=== PATIENT | female | born 1975 | race Caucasian/White ===

== ENCOUNTER → 2016-07-11 | Outpatient (CLI) | payer MEDICAID ==
[~2016-07-11] MED LIST: AMOXICILLIN 50500 MG PO; AURALGAN O10 ML/BOTT OT; DICLOFENAC 50MG50 MG PO; NOMEDS
[2016-07-11 16:02] LABS: AMPHETAMINES/METAMPHETAMINES NEGATIVE ng/mL (<1000)
[2016-07-23 12:37] LABS: Alprazolam Negative (Cutoff=100); Benzodiazepines Negative ng/mL (Cutoff=100); Clonazepam Negative (Cutoff=100); Flurazepam Negative (Cutoff=100); Lorazepam Negative (Cutoff=100); Midazolam Negative (Cutoff=100); Temazepam Negative (Cutoff=100); Triazolam Negative (Cutoff=100)
== END ==
LOC: LAB 15:36
PROVIDERS: Nurse Practitioner Family
DX: F41.9 Anxiety disorder, unspecified (principal); Z79.899 Other long term (current) drug therapy
CPT/HCPCS: G0480

== ENCOUNTER → 2017-03-11 | Outpatient (CLI) | payer MEDICAID ==
[~2017-03-11] MED LIST changes: +PROZAC20 MG; +Xanax0.25 MG
[2017-03-11 12:16] LABS: AMPHETAMINES/METAMPHETAMINES NEGATIVE ng/mL (<1000)
== END ==
LOC: LAB 11:10
PROVIDERS: Nurse Practitioner Family
DX: Z79.899 Other long term (current) drug therapy (principal)

== ENCOUNTER 2017-04-03 15:50 | Emergency (ER) | payer MEDICAID ==
[~2017-04-03] VITALS: Ht 157.5 cm; Wt 79.4 kg
--- NOTE | 2017-04-03 16:33 | RADIOLOGY REPORT PS360 ---
CT HEAD W/O CONTRAST HISTORY: Severe headache MIGRAINES ORDERING PHYSICIAN: Feliz Holman MD PATIENT AGE: 41 years COMPARISON: None TECHNIQUE: Axial images obtained without contrast. Brain and bone windows reviewed. FINDINGS: No midline shift, mass effect, intracranial hemorrhage, hydrocephalus, or extra-axial fluid collection is evident. The calvarium has an unremarkable appearance. No mastoid effusion. The visualized paranasal sinuses are unremarkable. IMPRESSION: Negative CT head without contrast. No acute finding.
--- NOTE | 2017-04-03 16:42 | Emergency Room Report ---
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 N Clinical Suspician of Infection? N Mental Status: 1 - Regular (Normal Baseline) Sepsis Risk: Have you (or family members/close friends) recently traveled outside the [place]? N If Yes, where/when: Have you had exposure to infectious disease within the past month? TB? Other? Specify: Patient states she has a migraine headache for the past 3 weeks was seen in fast track and was sent over for further evaluation and a CAT scan of the head. Planes of throbbing achy migraine headaches with photophobia. States it lasted longer than normal she denies any neurologic complaints otherwise to me no fevers or chills no complaint of neck stiffness. ALLERGIES Coded Allergies: sulfamethoxazole (04/03/17) trimethoprim (04/03/17) Home Medications Reported Medications Alprazolam (Xanax) Fluoxetine Hcl (Prozac) History Medical History General Angina: No [place]: No Hypertension? No Hyperlipidemia? No CHF? No COPD? No Asthma? Yes Hernia? No CVA? No Seizures? No Diabetes? No UTI? Yes Stones? No GB Disease: No Hepatitis? No Arthritis? Yes Migraines? Yes Cataracts? No Glaucoma? No MRSA? No TB? No Anxiety? Yes Depression? Yes Cancer? No Immunization Hx Ped.Immunizations UTD Yes DT/Tetanus > 10 Years Ago Flu NEVER Pneumonia NEVER Surgical Hx Previous Surgery?Y BLADDER TACK HYSTERECTOMY APPEALS NURSE Hx LMP N/A Family History Family Hx Diabetes No CAD Yes Hypertension Yes Hyperlipidemia No Cancer No TB No Social History Smoking Hx Smoker: Current Every Day Smoker Tobacco: Yes Type Cigarettes Packs/day < 1 Pack Alcohol Alcohol: No Review of Systems All Other Systems Reviewed and Negative Physical Exam Vital Signs Vital Signs Date Time Temp Pulse Resp B/P Pulse O2 O2 Flow FiO2 Ox Delivery Rate 04/03 1657 18 04/03 1604 98.3 68 18 148/84 99 General Appearance: Nontoxic Head: Normocephalic, without obvious abnormality, atraumatic. Eyes: conjunctiva/corneas clear ENT: Mucous membranes moist. Neck: No jugular venous distention. Cardiac: regular rate and rhythm Lungs: Clear to auscultation bilaterally Abdomen: Nontender, Nondistended, positive bowel sounds, no rebound : No CVA tenderness Extremities: no edema Musculoskeletal: No chest wall tenderness Skin: No rashes or lesions to exposed skin. Neurologic: Alert. Alert and oriented x3 Cranial nerves intact Strength 5 out of 5 Sensation intact to light touch Psychiatric: Normal affect (Feliz Holman MD) General Appearance normal appearance Respiratory Status No: respiratory distress. Cardiovascular normal exam Neurologic alert Medical Decision Making LABS/Meds/Orders Pt receiving controlled substance in ED? No Comment CT head read as negative by radiology Results/Orders Current Medication Orders Sig/Daisy Start time Last Medication Dose Route Stop Time Status Admin Ketorolac 0 .STK-MED ONE 04/03 1655 DC Tromethamine .ROUTE Ketorolac 30 MG ONCE ONE 04/03 1645 DC 04/03 Tromethamine IM 04/03 1646 1657 Orders Procedure Date/time Status DIET-NOTHING BY MOUTH 04/[address] HEAD REQ 04/03 1611 Complete Departure Departure Time of Disposition 1716 Disposition DC Home or Self Care(routine) Clinical Impression Primary Impression: Migraine Qualifiers: Migraine type: unspecified Status migrainosus presence: without status migrainosus Intractability: not intractable Qualified Code: G43.909 - Migraine, unspecified, not intractable, without status migrainosus Condition STABLE Referrals Melchor Mays APRN (Family) Patient Instructions Migraine -- Adult Additional Instructions follow up with your primary MD. Discharge Counseling Counseled pt/family regarding diagnosis, test results, medications/RX, home care, follow up needs ED Critical Care Critical Care No at 1715
[2017-04-03 17:17] VITALS: BP 134/82
== END 2017-04-03 17:18 | disposition home or self-care (01) ==
LOC: ER 15:50
DX: G43.909 Migraine, unspecified, not intractable, without status migrainosus (principal); J45.909 Unspecified asthma, uncomplicated; Z72.0 Tobacco use; F41.8 Other specified anxiety disorders; Z88.2 Allergy status to sulfonamides; Z88.3 Allergy status to other anti-infective agents

== ENCOUNTER 2017-06-01 17:40 | Emergency (ER) | payer MEDICAID ==
[~2017-06-01] VITALS: Ht 157.5 cm; Wt 70.3 kg
--- OUTSIDE RECORDS SUMMARY | 2017-06-01 18:04 | External Medical Summary Rpt | CCD ---
Author Author [employer] Organization [employer] Address Unknown Phone Unavailable Purpose Continuity of Care Document - through 2016
--- OUTSIDE RECORDS SUMMARY | 2017-06-01 18:04 | External Medical Summary Rpt ---
Author Author [employer], [employer] Organization [employer] Address Unknown Phone Unavailable Results Drugs identified in Urine by Screen method Observa Value Referen Units Interpr Notes Date tion ce etation Range Positive urine drug screen samples are stored for 7 days. Contact the Lab if confirmation of positives is needed. Ampheta NEGATIV <1000 ng/mL No No Sep 6 mine E informa informa 2017 [Presen tion in tion in 10:15 ce] in source source AM Urine data data by Screen method Barbitura <200 ng/mL No No Sep 6 nikkie informati informati 2017 [Mass/vol on in on in 10:15 AM ume] in source source Urine by data data Screen method Benzodiaz 200 ng/mL ng/mL High This is Sep 6 epines an 2017 [Mass/vol UNCONFIRM 10:15 AM ume] in ED Serum or result. Plasma by This Screen result is method for medicalpu rposes and/or treatment only. Cocaine <300 ng/g No No Sep 6 [Mass/vol informati informati 2017 ume] in on in on in 10:15 AM Unspecifi source source ed data data specimen Methadone <300 ng/mL No No Sep 6 informati informati 2017 [Mass/vol on in on in 10:15 AM ume] in source source Unspecifi data data ed specimen Opiates <300 ng/mL No No Sep 6 [Mass/vol informati informati 2017 ume] in on in on in 10:15 AM Unspecifi source source ed data data specimen Phencycli <25 ng/mL No No Sep 6 dine informati informati 2017 [Mass/vol on in on in 10:15 AM ume] in source source Unspecifi data data ed specimen 11-Hydr NEGATIV <50 ng/mL No No Sep 6 oxy E informa informa 2017 delta-9 tion in tion in 10:15 source source AM tetrahy data data drocann abinol [Presen ce] in Unspeci fied specime n Benzodiazepines Confirm, Urine Observa Value Referen Units Interpr Notes Date tion ce etation Range Benzodi Negativ Cutoff= ng/mL No No Dec 12 azepine e 100 informa informa 2017 s tion in tion in 9:36 AM [Presen source source ce] in data data Urine Alprazo Negativ Cutoff= No No No Dec 12 jama e 100 informa informa informa 2017 [Presen tion in tion in tion in 9:36 AM ce] in source source source Urine data data data Clonaze Negativ Cutoff= No No No Dec 12 ariel e 100 informa informa informa 2017 [Presen tion in tion in tion in 9:36 AM ce] in source source source Urine data data data Temazep Negativ Cutoff= No No No Dec 12 am e 100 informa informa informa 2017 [Presen tion in tion in tion in 9:36 AM ce] in source source source Urine data data data by Confirm method Triazol Negativ Cutoff= No No No Dec 12 am e 100 informa informa informa 2017 [Presen tion in tion in tion in 9:36 AM ce] in source source source Urine data data data Midazol Negativ Cutoff= No No No Dec 12 am e 100 informa informa informa 2017 [Presen tion in tion in tion in 9:36 AM ce] in source source source Urine data data data by Confirm method Nordiaz Negativ Cutoff= No No No Dec 12 epam e 100 informa informa informa 2016 [Presen tion in tion in tion in 9:36 AM ce] in source source source Urine data data data Please Comment . No No Drug-te Dec 12 Note: informa informa st 2017 tion in tion in results 9:36 AM source source should data data be interpr eted in the context of clinica linform ation. Patient metabol ic variabl es, specifi c drug manager chemistry ry, andspec imen charact eristic s can affect test outcome . Technic alconsu ltation is availab le if a test result is inconsi stent with anexpec antelmo outcome . (email- carlos manuel milner [email or web address] or call [email or web address] [phone] )Drug brands, if listed herein, are tradema rks of their respect ricfilipenoman Garcia ormed at: - [facility] [id number] [place], [place] [id number]Lab Directo r: Jese Hill MD, Phone: [phone] Oxazepa Negativ Cutoff= No No No Dec 12 m e 100 informa informa informa 2017 [Presen tion in tion in tion in 9:36 AM ce] in source source source Urine data data data Fluraze Negativ Cutoff= No No No Dec 12 ariel e 100 informa informa informa 2017 [Presen tion in tion in tion in 9:36 AM ce] in source source source Urine data data data Lorazep Negativ Cutoff= No No No Dec 12 am e 100 informa informa informa 2017 [Presen tion in tion in tion in 9:36 AM ce] in source source source Urine data data data Drugs identified in Urine by Screen method Observa Value Referen Units Interpr Notes Date tion ce etation Range Positive urine drug screen samples are stored for 7 days. Contact the Lab if confirmation of positives is needed. Ampheta NEGATIV <1000 ng/mL No No Dec 12 mine E informa informa 2016 [Presen tion in tion in 9:36 AM ce] in source source Urine data data by Screen method Barbitura <200 ng/mL No No Dec 12 nikkie informati informati 2017 9:36 [Mass/vol on in on in AM ume] in source source Urine by data data Screen method Benzodiaz 200 ng/mL ng/mL No No Dec 12 epines informati informati 2017 9:36 [Mass/vol on in on in AM ume] in source source Serum or data data Plasma by Screen method Cocaine <300 ng/g No No Dec 12 [Mass/vol informati informati 2017 9:36 ume] in on in on in AM Unspecifi source source ed data data specimen Methadone <300 ng/mL No No Dec 12 informati informati 2017 9:36 [Mass/vol on in on in AM ume] in source source Unspecifi data data ed specimen Opiates <300 ng/mL No No [place] 9 [Mass/vol informati informati 2017 9:36 ume] in on in on in AM Unspecifi source source ed data data specimen Phencycli <25 ng/mL No No Dec 9 dine informati informati 2017 9:36 [Mass/vol on in on in AM ume] in source source Unspecifi data data ed specimen 11-Hydr NEGATIV <50 ng/mL No No Dec 12 oxy E informa informa 2017 delta-9 tion in tion in 9:36 AM source source tetrahy data data drocann abinol [Presen ce] in Unspeci fied specime n
--- OUTSIDE RECORDS SUMMARY | 2017-06-01 18:04 | External Medical Summary Rpt ---
Author Author [employer], [employer] Organization [employer] Address Unknown Phone Unavailable [...] metabol ic variabl es, specifi c drug adjunct instructor chemistry ry, andspec imen charact eristic s can affect test outcome . Technic alconsu ltation is availab le if a test result is inconsi stent with anexpec antelmo outcome . (email- carlos manuel milner [email or web address] or call [employer] [phone] )Drug brands, if listed herein, are tradema rks of their respect ricfilipenoman Garcia ormed at: - [facility] [id number] [place], [place] [id number] Directo r: Jese Hill MD, Phone: [phone] Oxazepa Negativ Cutoff= No No No Dec [...]
--- OUTSIDE RECORDS SUMMARY | 2017-06-01 18:04 | External Medical Summary Rpt | CCD ---
Demographics Preferred Language Singaporean Marital Status Unknown Mormonism Affiliation Unknown Race Unknown Ethnic Group Unknown Author Author , [employer] Address Unknown Phone Immunization No patient found.
--- OUTSIDE RECORDS SUMMARY | 2017-06-01 18:04 | External Medical Summary Rpt | CCD ---
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 S S70.00XA CONTUSION OF UNSPECIFIED HIP, INITIAL ENCOUNTER Results Labs Lab Lab Date Result Refere Interp Status Commen Order Detail nces retati t Range on Drugs identified in Urine by Screen method (03-11-2017 10:15) Ampheta NEGATIV <1000 complet mine 017 E ed [Presen 10:15 ce] in Urine by Screen method Hydr NEGATIV <50 complet oxy 017 E ed delta-9 10:15 tetrahy drocann abinol [Presen ce] in Unspeci fied specime n Drugs identified in Urine by Screen method (12-12-2016 09:36) Ampheta NEGATIV <1000 complet mine 017 E ed [Presen 09:36 ce] in Urine by Screen method Hydr NEGATIV <50 complet oxy 017 E ed delta-9 09:36 tetrahy drocann abinol [Presen ce] in Unspeci fied specime n
--- OUTSIDE RECORDS SUMMARY | 2017-06-01 18:04 | External Medical Summary Rpt | CCD ---
Author Author , [employer] Address Unknown Phone [email or web address] Purpose Continuity of Care Document - 12-12-2016 [...]
--- OUTSIDE RECORDS SUMMARY | 2017-06-01 18:04 | External Medical Summary Rpt | CCD ---
Demographics Preferred Language Chadian Marital Status Unknown Yarsanism Affiliation Unknown Race Unknown Ethnic Group Unknown Author Author , [employer] Address Unknown Phone Immunization No patient found.
[2017-06-01 18:24] LABS: URINE BILIRUBIN - DIPSTICK NEGATIVE (NEG); URINE BLOOD NEGATIVE (NEG)
--- NOTE | 2017-06-01 18:29 | Urgent Treatment Center Report ---
See Addendum History of Present Issue Date/Time Seen by Provider 06/01/171816 Visit Reason Pt arrived:Walked Presenting Problem:PT C/O BODY ACHES, FEVER, CHILLS, DIARRHEA, NAUSEA ADVISES THIS STARTED AT 5AM. PT TOOK IBUPROFEN AT 1600 Location if Accident: Onset of symptoms date/time:/ or onset unknown for:MEDICAL HX UNKNOWN Have you (or family members/close friends) recently traveled outside the [place]? N If Yes, where/when: Have you had exposure to infectious disease within the past month? TB? Other? Specify: Patient state that she woke up about 5am this morning with abdominal pain and cramping State that she has had several eppisodes of diarrhea and vomited x 1 State that she is not sure if she may have a stomach virus or the flu State that she has been achy all over with flu like symptoms States that as the day went on she continued to feel worse so she decided to come in and get checked out ALLERGIES Coded Allergies: sulfamethoxazole (04/03/17) trimethoprim (04/03/17) Home Medications Reported Medications Alprazolam (Xanax) Fluoxetine Hcl (Prozac) History Medical History General Angina: No [place]: No Hypertension? No Hyperlipidemia? No CHF? No COPD? No Asthma? Yes Hernia? No CVA? No Seizures? No Diabetes? No UTI? Yes Stones? No GB Disease: No Hepatitis? No Arthritis? Yes Migraines? Yes Cataracts? No Glaucoma? No MRSA? No TB? No Anxiety? Yes Depression? Yes Cancer? No Immunization HX DT/Tetanus > 10 Years Ago Flu NEVER Pneumonia NEVER Surgical Hx Previous Surgery?Y BLADDER TACK HYSTERECTOMY Family History Family HX Diabetes No CAD Yes Hypertension Yes Hyperlipidemia No Cancer No TB No Social History Smoking Hx Smoker: Current Every Day Smoker Tobacco: Yes Type Cigarettes Packs/day < 1 Pack Alcohol Alcohol: No Review of Systems All Other Systems Reviewed and Negative Constitutional chills, fever ENT throat pain. Respiratory cough, denies shortness of breath, denies wheezing Gastrointestinal diarrhea, nausea, vomiting, other (cramping ) Physical Exam Vital Signs Vital Signs Date Time Temp Pulse Resp B/P Pulse O2 O2 Flow FiO2 Ox Delivery Rate 06/01 1813 101.7 87 16 127/86 98 06/01 1756 101.7 87 16 127/86 98 General Appearance normal appearance, WD/WN, no apparent distress Ear, Nose, Throat throat mildly red, irritated no exudate Respiratory Status Yes: trachea midline, chest symmetrical, non tender chest. No: respiratory distress. Lung Sounds bilateral: normal breath sounds, lungs clear. Cardiovascular normal exam, regular rate/rhythm, no peripheral edema Gastrointestinal normal bowel sounds, normal exam, no guarding, no rebound Neurologic alert, normal exam, oriented x 3 Medical Decision Making LABS/Meds/Orders Pt receiving controlled substance in ED? No Results/Orders Laboratory Tests 06/01/171814: Influenza Type A Ag NOT DETECTED, Influenza Type B Ag NOT DETECTED, Urine Color YELLOW, Urine Appearance CLEAR, Urine pH 5.5, Ur Specific [place] 1.020, Urine Protein NEGATIVE, Urine Ketones NEGATIVE, Urine Blood NEGATIVE, Urine Nitrate NEGATIVE, Urine Bilirubin NEGATIVE, Urine Urobilinogen 0.2, Ur Leukocyte Esterase SMALL, Urine Glucose NEGATIVE Current Medication Orders Sig/Daisy Start time Last Medication Dose Route Stop Time Status Admin Multi-Ingredient GI 0 .STK-MED ONE 06/01 1839 DC Drug PO Multi-Ingredient GI 60 ML ONCE ONE 06/01 1830 DC 06/01 Drug PO 06/01 1831 1840 Orders Procedure Date/time Status UTC URINE DIPSTICK 06/01 1815 Complete UTC FLU A,B 06/01 1815 Complete Progress UTC Progress Notes Comment Patient state that she feels much better after recieving GI cocktail States that her nausea is better and she is feeling a little better Departure Departure Time of Disposition 1849 Disposition DC Home or Self Care(routine) Clinical Impression Primary Impression: Gastroenteritis Condition STABLE Referrals Melchor Mays APRN (Family): [facility] If symptoms return or worsen Patient Instructions DI for Nausea -- Adult, DI for Vomiting -- Adult, Diarrhea, Nausea (Alternative Therapy) Additional Instructions try very small amounts of water or suck on ice chips. diarrhea. children and infants should use products formulated for children, like oral rehydration solutions. Never give aspirin to children or teenagers with a viral illness. This can cause Luis syndrome, a potentially life-threatening condition. Discharge Counseling Counseled pt/family regarding diagnosis, test results, medications/RX, home care, follow up needs Prescriptions Current Visit Scripts Ondansetron (Zofran 4MG Odt) 4 MG PO Q6HP PRN NAUSEA AND VOMITING #20 TAB at 1851
[2017-06-01] MEDS ORDERED: ZOFRAN ODT4 MG PO (18:51)
[2017-06-01 18:57] VITALS: BP 127/80
== END 2017-06-01 18:58 | disposition home or self-care (01) ==
LOC: ER 17:40 → UTC 18:01
PROVIDERS: Nurse Practitioner
DX: K52.9 Noninfective gastroenteritis and colitis, unspecified (principal); F41.8 Other specified anxiety disorders

== ENCOUNTER → 2017-06-16 | Outpatient (CLI) | payer MEDICAID ==
[~2017-06-16] MED LIST changes: +ZOFRAN ODT4 MG PO
--- NOTE | 2017-06-16 15:33 | RADIOLOGY REPORT PS360 ---
US RUQ-(ABD LTD)1ORGAN/QUAD/FU HISTORY: RUQ PAIN ORDERING PHYSICIAN: Melchor Mays APRN PATIENT AGE: 41 years COMPARISON: None FINDINGS: PANCREAS:Unremarkable. No obvious mass or abnormal fluid collection. No ductal dilatation LIVER:No focal liver lesions demonstrated. Homogeneous echogenicity. No intrahepatic biliary ductal dilatation evident RIGHT KIDNEY:Unremarkable. Normal size and echogenicity. No hydronephrosis GALLBLADDER:No gallstones, gallbladder wall thickening, pericholecystic fluid, or biliary dilatation. There is a small amount of sludge/gated bile within the gallbladder. IMPRESSION: 1. Small amount gallbladder sludge. 2. No shadowing stones or other significant anomalies
== END ==
LOC: RAD 07:42
DX: R10.11 Right upper quadrant pain (principal)